=== PATIENT | female | born 1970 | race Hispanic/Latino ===

== ENCOUNTER 2017-11-03 13:13 | Emergency (ER) | payer BC ==
[2017-11-03] MEDS ORDERED: IOHEXOL-350 75 ML VIAL IV ONE (13:31)
[2017-11-03] MEDS ORDERED: KETOROLAC TROMETHAMINE 30MG/ML ONE (14:39)
== END 2017-11-03 15:22 | disposition home or self-care (01) ==
LOC: EDH 13:13
DX: S05.12XA Contusion of eyeball and orbital tissues, left eye, initial encounter (principal); S80.212A Abrasion, left knee, initial encounter; S80.211A Abrasion, right knee, initial encounter; E11.9 Type 2 diabetes mellitus without complications; I10 Essential (primary) hypertension; Z90.49 Acquired absence of other specified parts of digestive tract; Z90.710 Acquired absence of both cervix and uterus; Z98.890 Other specified postprocedural states; Z88.0 Allergy status to penicillin; W18.39XA Other fall on same level, initial encounter; Y93.01 Activity, walking, marching and hiking; Y92.89 Other specified places as the place of occurrence of the external cause; Y99.8 Other external cause status
CPT/HCPCS: 70450; 70486; 73030; 73110; 96372; 99284; J1885; Q9967

== ENCOUNTER 2022-11-17 04:11 | Emergency (ER) | payer OTHER ==
[~2022-11-17] VITALS: Ht 152.4 cm; Wt 59.0 kg
[2022-11-17 04:11] VITALS: BP 181/76
[2022-11-17] MEDS ORDERED: MORPHINE 4 MG SYG ONE (05:47)
[2022-11-17] MEDS ORDERED: MORPHINE 4 MG SYG IM ONE (06:00)
== END 2022-11-17 07:52 | disposition left against medical advice (07) ==
LOC: EDH 04:11
DX: M25.571 Pain in right ankle and joints of right foot (principal); Z53.21 Procedure and treatment not carried out due to patient leaving prior to being seen by health care provider
CPT/HCPCS: 99281; 73610; J2270

== ENCOUNTER → 2023-03-19 | Outpatient (CLI) | payer OTHER ==
[2023-03-19 08:36] LABS: BASOPHILS # (AUTO) 0.05 K/uL (0.00-0.20); BASOPHILS % (AUTO) 0.8 % (0.0-5.0); EOSINOPHILS # (AUTO) 0.19 K/uL (0.00-0.70); HEMATOCRIT 31.5 % (36-48); IMMATURE GRANULOCYTE ABSOLUTE 0.02 K/uL (0-1); LYMPHOCYTES # (AUTO) 1.8 K/uL (1.0-4.8); LYMPHOCYTES % (AUTO) 28.9 % (21.0-51.0); MEAN CORPUSCULAR HEMOGLOBIN 16.8 pg (27.0-33.0); MEAN CORPUSCULAR HGB CONC 27.9 g/dL (32.0-36.0); MONOCYTES # (AUTO) 0.5 K/uL (0.1-1.0); MONOCYTES % (AUTO) 7.8 % (3.0-13.0); NEUTROPHILS # (AUTO) 3.7 K/uL (1.8-7.7); NEUTROPHILS % (AUTO) 59.2 % (40.0-77.0); PLATELET COUNT (AUTO) 451 K/uL (130-400); RED BLOOD CELL COUNT(AUTO) 5.25 MIL/uL (4.00-5.50); RED CELL DISTRIBUTION WIDTH 21.2 % (11.0-15.5); WHITE BLOOD COUNT (AUTO) 6.3 K/uL (4.8-10.8)
[2023-03-19 08:43] LABS: HEMOGLOBIN A1C 11.1 % (4.0-6.0)
[2023-03-19 09:24] LABS: ALBUMIN 3.7 g/dL (3.5-5.0); BILIRUBIN,DIRECT 0.1 mg/dL (0.0-0.3); BILIRUBIN,TOTAL 0.3 mg/dL (0.2-1.0); CREATININE 0.5 mg/dL (0.5-1.5); POTASSIUM 4.3 mmol/L (3.5-5.1); THYROID STIMULATING HORMONE 1.53 uIU/mL (0.36-3.74); TOTAL PROTEIN, SERUM 7.6 g/dL (6.0-8.3); URIC ACID 3.5 mg/dL (2.6-7.2)
== END | disposition home or self-care (01) ==
LOC: LAB 07:43
PROVIDERS: ATTEND Internal Medicine
DX: E11.65 Type 2 diabetes mellitus with hyperglycemia (principal); B00.9 Herpesviral infection, unspecified; D50.9 Iron deficiency anemia, unspecified; E53.8 Deficiency of other specified B group vitamins; E55.9 Vitamin D deficiency, unspecified; E78.5 Hyperlipidemia, unspecified; F33.9 Major depressive disorder, recurrent, unspecified; F41.1 Generalized anxiety disorder; J45.20 Mild intermittent asthma, uncomplicated; K13.0 Diseases of lips; K43.9 Ventral hernia without obstruction or gangrene; K76.0 Fatty (change of) liver, not elsewhere classified; R01.1 Cardiac murmur, unspecified; R07.89 Other chest pain; R29.2 Abnormal reflex; Z90.49 Acquired absence of other specified parts of digestive tract; Z98.84 Bariatric surgery status
CPT/HCPCS: 36415; 80053; 80061; 80076; 82248; 82306; 82607; 83036; 83090; 84443; 84550; 85025

== ENCOUNTER → 2023-03-20 | Outpatient (CLI) | payer OTHER | END | disposition home or self-care (01) | LOC: RAH 13:19 | PROVIDERS: ATTEND Internal Medicine | DX: I51.7 Cardiomegaly (principal); R01.1 Cardiac murmur, unspecified; I51.89 Other ill-defined heart diseases | CPT/HCPCS: 93306 ==

== ENCOUNTER → 2024-07-17 | Outpatient (CLI) | payer OTHER ==
[2024-07-17 09:13] LABS: BASOPHILS # (AUTO) 0.05 K/uL (0.00-0.20); BASOPHILS % (AUTO) 0.9 % (0.0-5.0); EOSINOPHILS # (AUTO) 0.23 K/uL (0.00-0.70); HEMATOCRIT 34.1 % (36-48); IMMATURE GRANULOCYTE ABSOLUTE 0.01 K/uL (0-1); LYMPHOCYTES # (AUTO) 2.5 K/uL (1.0-4.8); LYMPHOCYTES % (AUTO) 42.8 % (21.0-51.0); MEAN CORPUSCULAR HEMOGLOBIN 29.2 pg (27.0-33.0); MEAN CORPUSCULAR HGB CONC 34.3 g/dL (32.0-36.0); MONOCYTES # (AUTO) 0.4 K/uL (0.1-1.0); MONOCYTES % (AUTO) 6.6 % (3.0-13.0); NEUTROPHILS # (AUTO) 2.6 K/uL (1.8-7.7); NEUTROPHILS % (AUTO) 45.5 % (40.0-77.0); PLATELET COUNT (AUTO) 271 K/uL (130-400); RED BLOOD CELL COUNT(AUTO) 4.01 MIL/uL (4.00-5.50); RED CELL DISTRIBUTION WIDTH 13.2 % (11.0-15.5); WHITE BLOOD COUNT (AUTO) 5.7 K/uL (4.8-10.8)
[2024-07-17 10:23] LABS: ALBUMIN 3.7 g/dL (3.5-5.0); BILIRUBIN,TOTAL 0.5 mg/dL (0.2-1.0); CREATININE 0.4 mg/dL (0.5-1.0); POTASSIUM 3.7 mmol/L (3.5-5.1); THYROID STIMULATING HORMONE 1.68 uIU/mL (0.36-3.74); TOTAL PROTEIN, SERUM 7.1 g/dL (6.0-8.3)
[2024-07-18 11:12] LABS: INSULIN, RANDOM OR FASTING 4.7 uIU/mL (2.6-24.9)
== END | disposition home or self-care (01) ==
LOC: LAB 07-16 10:00
PROVIDERS: ATTEND Nurse Practitioner Family
DX: M79.18 Myalgia, other site (principal); K59.09 Other constipation; N95.8 Other specified menopausal and perimenopausal disorders; L65.8 Other specified nonscarring hair loss; R53.83 Other fatigue
CPT/HCPCS: 36415; 80053; 82306; 82607; 82627; 82670; 82679; 82728; 83001; 83002; 83525; 84144; 84270; 84402; 84403; 84439; 84443; 84481; 85025; 86376

== ENCOUNTER → 2024-08-28 | Outpatient (CLI) | payer OTHER ==
--- NOTE | 2024-08-31 09:56 | HMCIMG ---
MAMMO SCREENING IMPLANT HISTORY: Screening mammogram. COMPARISON: 10/09/2017 TECHNIQUE: Bilateral screening mammogram with CAD was performed with craniocaudal and mediolateral oblique projections. Additional pushback views were obtained. FINDINGS: There are scattered areas of fibroglandular density. There are bilateral breast implants. There is no evidence of a dominant mass, or suspicious microcalcification. There is no evidence of nipple retraction or skin thickening. IMPRESSION: 1. Stable mammogram. Patient was entered into a reminder system with a target due date for their next mammogram. BI-RADS: CATEGORY 2: BENIGN FINDINGS Recommend monthly self breast exam as well as annual clinical examination. A negative x-ray should not delay biopsy if a dominant or clinically suspicious mass is present, since 8-10% of cancers are not identified by mammography. Dense breasts particularly, may obscure an underlying neoplasm. Some of these may be detected clinically and therefore, clinical examination is an essential part of breast evaluation.
== END | disposition home or self-care (01) ==
LOC: RAH 10:51
PROVIDERS: ATTEND Internal Medicine
DX: Z12.31 Encounter for screening mammogram for malignant neoplasm of breast (principal); R92.323 Mammographic fibroglandular density, bilateral breasts
CPT/HCPCS: 77067

== ENCOUNTER → 2024-10-09 | Outpatient (CLI) | payer OTHER ==
[2024-10-09 07:43] LABS: BASOPHILS # (AUTO) 0.06 K/uL (0.00-0.20); BASOPHILS % (AUTO) 0.8 % (0.0-5.0); EOSINOPHILS # (AUTO) 0.24 K/uL (0.00-0.70); HEMATOCRIT 39.5 % (36-48); IMMATURE GRANULOCYTE ABSOLUTE 0.03 K/uL (0-1); LYMPHOCYTES # (AUTO) 3.4 K/uL (1.0-4.8); LYMPHOCYTES % (AUTO) 42.5 % (21.0-51.0); MEAN CORPUSCULAR HEMOGLOBIN 27.2 pg (27.0-33.0); MEAN CORPUSCULAR HGB CONC 32.4 g/dL (32.0-36.0); MEAN CORPUSCULAR VOLUME 83.9 fL (79-99); MONOCYTES # (AUTO) 0.5 K/uL (0.1-1.0); MONOCYTES % (AUTO) 6.6 % (3.0-13.0); NEUTROPHILS # (AUTO) 3.7 K/uL (1.8-7.7); NEUTROPHILS % (AUTO) 46.7 % (40.0-77.0); PLATELET COUNT (AUTO) 294 K/uL (130-400); RED BLOOD CELL COUNT(AUTO) 4.71 MIL/uL (4.00-5.50); RED CELL DISTRIBUTION WIDTH 13.4 % (11.0-15.5)
[2024-10-09 08:10] LABS: ALBUMIN 3.7 g/dL (3.5-5.0); BILIRUBIN,TOTAL 0.5 mg/dL (0.2-1.0); CREATININE 0.5 mg/dL (0.5-1.0); POTASSIUM 3.8 mmol/L (3.5-5.1); TOTAL PROTEIN, SERUM 7.2 g/dL (6.0-8.3)
[2024-10-09 08:51] LABS: B-TYPE NATRIURETIC PEPTIDE 22 pg/mL (0-100)
[2024-10-09 08:52] LABS: ERYTHROCYTE SEDIMENTATION RATE 13 MM/HR (0-30)
[2024-10-10 10:13] LABS: RHEUMATOID ARTHRITIS FACTOR 11.1 IU/mL (<14.0)
== END | disposition home or self-care (01) ==
LOC: LAB 07:07
PROVIDERS: ATTEND Internal Medicine
DX: E61.1 Iron deficiency (principal); N95.8 Other specified menopausal and perimenopausal disorders; E55.9 Vitamin D deficiency, unspecified; L65.8 Other specified nonscarring hair loss; D51.9 Vitamin B12 deficiency anemia, unspecified; K59.09 Other constipation; M79.18 Myalgia, other site; R53.83 Other fatigue
CPT/HCPCS: 36415; 80053; 82306; 82607; 82626; 82670; 82679; 82728; 83001; 83002; 83036; 83880; 84144; 84402; 84403; 85025; 85651; 86038; 86140; 86215; 86235; 86431

== ENCOUNTER → 2024-12-01 | Outpatient (CLI) | payer OTHER ==
[2024-12-01 10:03] LABS: IMMATURE GRANULOCYTE ABSOLUTE 0.01 K/uL (0-1); NUCLEATED RED BLOOD CELLS 0.0 % (0.0-0.19); PLATELET COUNT (AUTO) 239 K/uL (130-400); RED BLOOD CELL COUNT(AUTO) 4.70 MIL/uL (4.00-5.50); RED CELL DISTRIBUTION WIDTH 14.2 % (11.0-15.5); WHITE BLOOD COUNT (AUTO) 5.4 K/uL (4.8-10.8)
[2024-12-01 10:12] LABS: APPEARANCE,URINE CLEAR (CLEAR); GLUCOSE, URINE (UA) NEGATIVE (NEGATIVE); LEUKOCYTE ESTERASE ,URINE 75 Leu/uL (NEGATIVE); NITRATE,URINE NEGATIVE (NEGATIVE); OCCULT BLOOD,URINE NEGATIVE (NEGATIVE)
[2024-12-01 10:27] LABS: ASPARTATE AMINOTRANSFERASE 22.0 U/L (10-37); CREATININE 0.5 mg/dL (0.5-1.0); GLOMERULAR FILTR. RATE CALC 111.0 mL/min (>90); GLUCOSE,RANDOM 147.0 mg/dL (70-105); SODIUM SERUM 142.0 mmol/L (136-145); TOTAL PROTEIN, SERUM 6.7 g/dL (6.0-8.3); UREA NITROGEN, BLOOD 12.0 mg/dL (7-18)
[2024-12-01 10:31] LABS: ADD UA MICROSCOPIC YES
[2024-12-01 10:33] LABS: SQUAMOUS EPITHELIAL CELL,UR FEW /HPF (0-2)
== END | disposition home or self-care (01) ==
LOC: LAB 09:21
PROVIDERS: ATTEND Internal Medicine
DX: E11.65 Type 2 diabetes mellitus with hyperglycemia (principal); H81.10 Benign paroxysmal vertigo, unspecified ear; R53.83 Other fatigue; Z13.220 Encounter for screening for lipoid disorders
CPT/HCPCS: 36415; 80050; 80053; 81001; 82607; 84443; 85025; 87086

== ENCOUNTER → 2024-12-04 | Outpatient (CLI) | payer OTHER ==
[~2024-12-04] MED LIST: GADOTERATE MEGLUMINE 10 MMOL/20 ML VIAL IV ONE
--- NOTE | 2024-12-06 20:58 | HMCIMG ---
EXAM: MR Brain Without and With IV Contrast CLINICAL HISTORY: Benign paroxysmal vertigo. TECHNIQUE: Post contrast multiplanar multi-sequence MRI of the brain. COMPARISON: CT dated 11/03/17. FINDINGS: No abnormal parenchymal signal is present. Bilateral hippocampi are symmetrical and reveal normal signal. No evidence of acute cortical infarction, hemorrhage, mass, or mass effect. The ventricular system is normal in size, shape, and contour. No hydrocephalus. No abnormal extra-axial fluid collection is present. The marrow signal within the skull base and calvarium is intact. The paranasal sinuses and mastoid air cells are clear. IMPRESSION: No acute intracranial abnormality or mass. /[place]
== END | disposition home or self-care (01) ==
LOC: RAH 09:35
PROVIDERS: ATTEND Internal Medicine
DX: H81.10 Benign paroxysmal vertigo, unspecified ear (principal)
CPT/HCPCS: 70553; A9575

== ENCOUNTER → 2025-03-04 | Outpatient (CLI) | payer OTHER ==
[2025-03-04 07:53] LABS: IMMATURE GRANULOCYTE ABSOLUTE 0.01 K/uL (0-1); NUCLEATED RED BLOOD CELLS 0.0 % (0.0-0.19); PLATELET COUNT (AUTO) 285 K/uL (130-400); RED BLOOD CELL COUNT(AUTO) 4.75 MIL/uL (4.00-5.50); RED CELL DISTRIBUTION WIDTH 14.5 % (11.0-15.5); WHITE BLOOD COUNT (AUTO) 5.9 K/uL (4.8-10.8)
[2025-03-04 08:21] LABS: ASPARTATE AMINOTRANSFERASE 16.0 U/L (10-37); CREATININE 0.5 mg/dL (0.5-1.0); GLOMERULAR FILTR. RATE CALC 111.0 mL/min (>90); GLUCOSE,RANDOM 109.0 mg/dL (70-105); LDL DIRECT 104.0 mg/dL (0-99); SODIUM SERUM 139.0 mmol/L (136-145); TOTAL PROTEIN, SERUM 7.8 g/dL (6.0-8.3); UREA NITROGEN, BLOOD 15.0 mg/dL (7-18)
== END | disposition home or self-care (01) ==
LOC: RAH 03-03 10:59 → LAB 07:27
PROVIDERS: ATTEND Internal Medicine
DX: E11.65 Type 2 diabetes mellitus with hyperglycemia (principal); E61.1 Iron deficiency; H81.10 Benign paroxysmal vertigo, unspecified ear; R53.83 Other fatigue; Z13.220 Encounter for screening for lipoid disorders; Z13.29 Encounter for screening for other suspected endocrine disorder; Z23 Encounter for immunization
CPT/HCPCS: 36415; 80053; 80061; 80076; 82043; 82306; 82570; 82728; 83036; 84443; 84550; 85025

== ENCOUNTER → 2025-04-22 | Outpatient (CLI) | payer OTHER ==
[2025-04-22 10:54] LABS: INR 0.99 (0.85-1.15)
== END | disposition home or self-care (01) ==
LOC: LAB 10:15
PROVIDERS: ATTEND Internal Medicine
DX: Z01.812 Encounter for preprocedural laboratory examination (principal)
CPT/HCPCS: 36415; 85610; 85730